=== PATIENT | male | born 1955 | race Caucasian/White ===

== ENCOUNTER 2018-07-08 14:09 | Outpatient (CLI) | payer BC ==
[2018-07-08 15:25] LABS: #Eosinphils 0.1 thou/uL (0.0-0.7); #Lymphocytes 1.5 thou/uL (1.20-3.40); #Monocytes 0.9 thou/uL (0.11-0.59); #Neutrophils 4.3 thou/uL (1.40-6.50); %Basophils 0.5 % (0.0-1.0); %Eosinophils 0.7 % (0.0-10.0); %Lymphocytes 21.6 % (21.0-51.0); %Monocytes 13.7 % (0.0-10.0); %Neutrophils 63.5 % (42.0-75.0); Hemoglobin 15.9 g/dL (14.0-18.0); Mean Corpuscular HGB CONC 33.3 g/dL (32.0-36.0); Mean Corpuscular Hemoglobin 31.1 pg (27.0-31.0); Mean Corpuscular Volume 93.7 fL (78.0-98.0); Mean Platelet Volume 7.6 fL (7.4-10.4); Platelet Count 199 thou/uL (130-400); RBC Distribution Width 12.5 % (11.5-14.5); Red Blood Cell (RBC) Count 5.09 mill/uL (4.70-6.10); White Blood Cell (WBC) Count 6.8 thou/uL (4.8-10.8)
[2018-07-08 15:49] LABS: ALT (SGPT) 13 U/L (8-55); AST (SGOT) 17 U/L (5-34); Albumin 4.4 g/dL (3.4-4.8); Alkaline Phosphatase 59 U/L (40-150); Anion Gap 11 mmol/L (10-20); BUN (Urea Nitrogen) 16 mg/dL (8.4-25.7); Bilirubin, Total 0.9 mg/dL (0.2-1.2); Calc. Creatinine Clearance 0 mL/min (70-130); Calcium 9.4 mg/dL (7.8-10.44); Carbon Dioxide 27 mmol/L (23-31); Chloride 105 mmol/L (98-107); Estimated GFR-MDRD 58; Globulin 2.7 g/dL (2.4-3.5); Glucose 87 mg/dL (80-115); Potassium 3.9 mmol/L (3.5-5.1); Protein, Total 7.1 g/dL (5.8-8.1); Sodium 139 mmol/L (136-145)
--- NOTE | 2018-07-12 17:25 | EKG ---
Test Reason : Blood Pressure : / mmHG Vent. Rate : 071 BPM Atrial Rate : 071 BPM P-R Int : 148 ms QRS Dur : 088 ms QT Int : 384 ms P-R-T Axes : 075 062 067 degrees QTc Int : 417 ms Normal sinus rhythm Normal ECG No previous ECGs available Confirmed by TRAVIS PRICE ([id number]) on 07/12/2018 5:24:23 PM Referred By: JONATHAN Confirmed By:TRAVIS PRICE
== END 2018-07-08 14:10 | disposition home or self-care (01) ==
LOC: LABBT 14:09
PROVIDERS: ATTEND Surgery
DX: Z01.818 Encounter for other preprocedural examination (principal); K40.20 Bilateral inguinal hernia, without obstruction or gangrene, not specified as recurrent
CPT/HCPCS: 80053; 85025; 93005; 93010

== ENCOUNTER 2018-07-10 05:55 | Day surgery (SDC) | payer BC ==
[2018-07-08 14:43] VITALS: BMI 24.4
[2018-07-10] MEDS ORDERED: CEFAZOLIN/Water 2 GM/20 ML SYRINGE ONE (06:10)
[2018-07-10] MEDS ORDERED: Midazolam HCl 2 mg/2 ml Vial ONE ×2 (06:47→07:11)
[2018-07-10] MEDS ORDERED: Scopolamine 1.5 mg/72 hour Patch ONE (06:47)
[2018-07-10] MEDS ORDERED: Fentanyl 100 MCG/2 ML VIAL ONE (07:10)
[2018-07-10] MEDS ORDERED: Ketamine 50 MG/ML VIAL ONE (07:11)
[2018-07-10] MEDS ORDERED: Propofol 500 MG/50 ML VIAL ONE (07:23)
[2018-07-10] MEDS ORDERED: Bupivacaine/Epinephrine 0.25% 30 ML VIAL ONE (07:28)
[2018-07-10] MEDS ORDERED: Propofol 1,000 MG/100 ML VIAL IV ONE (07:40)
[2018-07-10] MEDS ORDERED: SUGAMMADEX SODIUM 200 MG/2 ML VIAL ONE (08:46)
[2018-07-10] MEDS ORDERED: Rocuronium Bromide 50 MG/5 ML VIAL ONE (08:53)
--- NOTE | 2018-07-10 11:22 | OP ---
DATE OF PROCEDURE: 07/10/2018 PREOPERATIVE DIAGNOSIS: Bilateral inguinal hernia. SURGEON: Ever Thomason M.D. PROCEDURE PERFORMED: Laparoscopic robotic assisted bilateral inguinal hernia repair with mesh. INDICATIONS: This is a 63-year-old male with painful bilateral inguinal hernias. FINDINGS: Bilateral indirect inguinal hernias. PROCEDURE IN DETAIL: After informed consent was obtained, the patient was taken to the operating ila m and given general endotracheal anesthesia. He was placed in the supine position. His abdomen was prepped and draped in usual fashion. Supraumbilical incision was performed. Subcu divided sharply. He had a small umbilical hernia. This was opened and entry into the abdominal cavity was performed through the umbilical hernia. A blunt 12 trocar inserted. Pneumoperitoneum was created to a pressur e of 15 mmHg. Under direct vision utilizing a 30 degree laparoscope, two 8 mm ports were placed just lateral to the rectus at the level of the initial incision. Then, the patient placed in Trendelenbu rg position and the robot was docked. The pelvis inspected. He did have bilateral inguinal hernias. Started on the right peritoneum was opened from median umbilical ligament laterally. A subperitone al plane was developed using blunt and sharp dissection. The hernia sac was reduced including a cord lipoma. Hemostasis assured. I then moved to the left side. Again, the peritoneum opened from medi an umbilical ligament laterally. Subperitoneal plane developed using blunt and sharp dissection. Th en, the right mesh was inserted, placed in its pocket. Then the left mesh was inserted and placed in its pocket. Then using a 2-0 silk suture, the mesh was secured to the pubic tubercle bilaterally an d then secured superiorly just medial to the epigastric vessels with a 2-0 silk suture tied intracorp oreally. Then, using the 3-0 Stratafix mesh, the peritoneum was closed over the mesh from lateral to medially. Hemostasis assured. All needles were removed. The abdomen decompressed. The fascia of the umbilicus was closed with a [id number] of 0 Vicryl suture. Then, the skin closed with inter rupted 4-0 Rapide. Dermabond applied. The patient tolerated the procedure well and was transferred to recovery in good condition. Sponge and needle count verified correct x2.
[2018-07-10] MEDS ORDERED: HYDROcodone/Acetaminophen 5/325 mg Tablet ONE (13:08)
== END 2018-07-10 14:17 | disposition home or self-care (01) ==
LOC: SDC 05:55
PROVIDERS: ATTEND Surgery
PROC: 0YUA4JZ Supplement Bilateral Inguinal Region with Synthetic Substitute, Percutaneous Endoscopic Approach (ICD-10-PCS; principal; 2018-07-10)
DX: K40.20 Bilateral inguinal hernia, without obstruction or gangrene, not specified as recurrent (principal); Z86.010 Personal history of colon polyps; Z79.899 Other long term (current) drug therapy; Z80.0 Family history of malignant neoplasm of digestive organs
CPT/HCPCS: C1781; J0131; J2250; J2704; J3010

== ENCOUNTER 2019-05-05 12:08 | Emergency (ER) | payer BC ==
[2019-05-05] MEDS ORDERED: Adacel (T-DAP) 0.5 ML SYRINGE ONE (13:52)
[2019-05-05] MEDS ORDERED: CEFAZOLIN 1 GM VIAL ONE (13:52)
[2019-05-05] MEDS ORDERED: Sodium Chloride 0.9% 100 ML ONE (13:52)
--- NOTE | 2019-05-05 13:52 | RAD ---
RIGHT FINGER THREE VIEW: 05/05/19 HISTORY: Laceration. COMPARISON: None. FINDINGS: No fracture, malalignment, nor radiopaque foreign object. IMPRESSION: 1. No fracture, malalignment or radiopaque foreign object. 2. Soft tissue swelling, likely laceration along the medial aspect of the nail bed of the fourth finger. POS: HOME
[2019-05-05] MEDS ORDERED: Sterile Water 10 ML ONE (13:56)
[2019-05-05] MEDS ORDERED: Triple Antibiotic Oint 1 GM Packet ONE (14:02)
== END 2019-05-05 14:13 | disposition home or self-care (01) ==
LOC: ERS 12:08
DX: S61.209A Unspecified open wound of unspecified finger without damage to nail, initial encounter (principal); W26.8XXA Contact with other sharp object(s), not elsewhere classified, initial encounter
CPT/HCPCS: 90471; 90715; 96372; J0690; J3490